=== PATIENT | female | born 1960 | race Caucasian/White ===

== ENCOUNTER 2017-09-29 11:30 | Outpatient (RCR) | payer BC | END 2017-10-21 | disposition home or self-care (01) | LOC: PT | DX: M25.522 Pain in left elbow (principal); M89.8X1 Other specified disorders of bone, shoulder ==

== ENCOUNTER → 2021-10-30 | Outpatient (CLI) | payer OTHER | LOC: MAMMO 08:30 | DX: Z12.31 Encounter for screening mammogram for malignant neoplasm of breast (principal); Z98.82 Breast implant status ==

== ENCOUNTER → 2021-11-23 | Outpatient (CLI) | payer OTHER | LOC: RAD 10:57 | DX: M50.30 Other cervical disc degeneration, unspecified cervical region (principal) ==